=== PATIENT | female | born 1995 | race Caucasian/White ===

== ENCOUNTER 2023-10-29 13:48 | Outpatient (CLI) | payer OTHER, SELFPAY ==
--- NOTE | 2023-10-29 14:00 | US_ITS ---
Patient: BLAISE MARQUEZ Facility:?[facility] Patient ID:?[id number] Site Patient ID:?[id number]. Site :?1995 Study:?US-OB Pelvis DATING AND VIABILITY-10/29/2023 2:48:25 PM Ordering Physician:KIKO NICHOLSON Final Report: INDICATION: Check dates and viability. TECHNIQUE: Transabdominal scanning was performed. COMPARISON: None. FINDINGS: There is a living IUP with gestational age of 10 weeks by LMP and 10 weeks 3 days by today`s crown-rump length. EDC based on LMP is 05/26/2024 and by today`s crown-rump length is 05/23/2024. The embryonic heart rate is measured at 163 beats per minute. The placenta is not yet formed. No subchorionic hemorrhage is evident. A 2.1 cm left ovarian corpus luteum is noted. The right ovary measures 3.0 x 1.7 x 1.3 cm and the left 3.4 x 2.7 x 1.9 cm. No adnexal mass or free fluid is apparent. IMPRESSION: 1. Living IUP with gestational age of 10 weeks by LMP and 10 weeks 3 days by today`s crown-rump length. EDC based on LMP is 05/26/2024 and by today`s crown- rump length is 05/23/2024. 2. No complication evident. Dictated by James Mathews MD @ 10/30/2023 8:02:05 AM Signed by:?James Mathews MD @10/30/2023 8:02:05 AM (Electronic Signature)
== END 2023-10-29 13:49 | disposition home or self-care (01) ==
LOC: US 13:50
PROVIDERS: Visit Provider Registered Nurse
DX: Z34.91 Encounter for supervision of normal pregnancy, unspecified, first trimester (principal); Z3A.10 10 weeks gestation of pregnancy
CPT/HCPCS: 76801; 82565; 82570; 84156; 84450; 84460; 84520; 86703; 86706; 86803; 86850; 86900; 86901; 87086; 87340; 87491; 87591

== ENCOUNTER 2023-10-29 15:08 | Outpatient (CLI) | payer OTHER, SELFPAY ==
[2023-10-29 18:39] LABS: Chlamydia DNA Amplified* NOT DETECTED (No Detected); GC DNA Amplified* NOT DETECTED (No Detected)
== END 2023-10-29 15:09 | disposition home or self-care (01) ==
PROVIDERS: Visit Provider Registered Nurse
DX: Z34.91 Encounter for supervision of normal pregnancy, unspecified, first trimester (principal)
CPT/HCPCS: 82565; 82570; 84156; 84450; 84460; 84520; 86592; 86703; 86704; 86706; 86762; 86787; 86803; 86850; 86900; 86901; 87086; 87340; 87491; 87591

== ENCOUNTER 2024-01-07 13:46 | Outpatient (CLI) | payer OTHER, BC, SELFPAY ==
--- NOTE | 2024-01-07 14:00 | US_ITS ---
Patient: BLAISE MARQUEZ Facility:?[facility] Patient ID:?[id number] Site Patient ID:?[id number]. Site :?1995 Study:?US-OB Pelvis OB > 14wks-01/07/2024 3:41:19 PM Ordering Physician:?Yanni Lucero Final Report: HISTORY: anatomic survey. COMPARISON: Early OB ultrasound from 10/29/2023 TECHNIQUE: Ultrasound examination of the is performed with transabdominal technique. FINDINGS: A single intrauterine gestation is seen in variable presentation with regular cardiac activity at 139 beats per minute. The placenta is posterior and is low- lying, with the inferior placental margin 2.4 centimeters from the cervical os. The placental grade is 0 and the amniotic fluid volume is normal. Single deepest vertical pocket: Normal at 4.8 cm. The cervix is nondilated and normal in length measuring 3.8 centimeters. BPD: 4.7 cm 20 weeks 0 days HC: 18.3 cm 20 weeks 5 days AC: 15.0 cm 20 weeks 2 days FL: 3.5 cm 21 weeks 0 days The estimated age by ultrasound is 20 weeks 3 days, with an estimated date of delivery of 05/23/2024. This correlates well with the clinical age of 20 weeks 0 days and the previous ultrasound. The ultrasound ratios are normal. The estimated weight of 370 grams is at the 79th percentile based on the clinical dates. The anatomic survey demonstrates normal appearing intracranial structures with a normal septum pellucidum and normal cerebellum. The nuchal thickness is normal at 5 mm, and the lateral ventricle is normal in diameter at 6 mm. The upper lip, 4 chamber heart, left and right ventricular outflow tracts, diaphragm, stomach, cord insertion site, 3-vessel cord, kidneys, bladder and spine are normal in appearance. IMPRESSION: 1. Single intrauterine gestation in variable presentation with regular cardiac activity. 2. Estimated gestational age is 20 weeks 3 days. 3. There has been appropriate interval growth. 4. Estimated weight of 370 grams is at the 79th percentile based on the clinical dates. 5. Low-lying posterior placenta. Recommend follow-up ultrasound to exclude a persistent marginal placenta previa. Dictated by Braydon Hernadez MD @ 01/08/2024 11:08:57 AM Signed by:?Braydon Hernadez MD @01/08/2024 11:08:57 AM (Electronic Signature)
== END 2024-01-07 13:47 | disposition home or self-care (01) ==
LOC: US 13:46
PROVIDERS: Visit Provider Obstetrics & Gynecology
DX: Z34.92 Encounter for supervision of normal pregnancy, unspecified, second trimester (principal); O44.42 Low lying placenta NOS or without hemorrhage, second trimester; Z3A.20 20 weeks gestation of pregnancy
CPT/HCPCS: 76805

== ENCOUNTER 2024-03-01 08:17 | Outpatient (CLI) | payer OTHER, BC, SELFPAY ==
--- NOTE | 2024-03-01 08:45 | CRLHL7_ITS ---
For Patients: As a result of the Century Cures Act, medical imaging exams and procedure reports are released immediately into your electronic medical record. You may view this report before your referring provider. If you have questions, please contact your health care provider. INDICATION: Borderline low-lying placenta at 20wks COMPARISON: 5.8.24 TECHNIQUE: Real time toledo scale imaging of the fetus was performed. Without non-stress testing. FINDINGS: Sonographic imaging demonstrates a single living intrauterine gestation. Fetus demonstrates a regular cardiac rate of 152 beats per minute. Fetus has a vertex position. The amniotic fluid volume appears normal and there is a single deepest pocket measurement of 5.0 cm. The fetus was active and demonstrated normal breathing movements. There was normal flexion and extension of the trunk and extremities. Posterior placental edge is located 5.7 cm from the internal cervical os. IMPRESSION: Normal biophysical profile score of 8 out of 8. Posterior placental edge is located 5.7 cm from the internal cervical os. Dictated by Denny Tsai MD @ 03/01/2024 11:10:31 AM (Electronically Signed)
== END 2024-03-01 08:18 | disposition home or self-care (01) ==
LOC: US 08:26
PROVIDERS: Visit Provider Obstetrics & Gynecology
DX: O43.102 Malformation of placenta, unspecified, second trimester (principal); Z3A.20 20 weeks gestation of pregnancy
CPT/HCPCS: 76816; 82570; 84156

== ENCOUNTER 2024-03-01 09:14 | Outpatient (CLI) | payer OTHER, BC, SELFPAY | END 2024-03-01 09:15 | disposition home or self-care (01) | LOC: NFLDREF 09:15 | PROVIDERS: Visit Provider Obstetrics & Gynecology | DX: Z34.82 Encounter for supervision of other normal pregnancy, second trimester (principal) | CPT/HCPCS: 82570; 84156; 86592 ==

== ENCOUNTER 2024-04-23 15:17 | Outpatient (CLI) | payer OTHER, BC, SELFPAY | END 2024-04-23 15:18 | disposition home or self-care (01) | LOC: NFLDREF 04-27 23:23 | PROVIDERS: Visit Provider Obstetrics & Gynecology | DX: Z34.93 Encounter for supervision of normal pregnancy, unspecified, third trimester (principal); Z3A.35 35 weeks gestation of pregnancy | CPT/HCPCS: 87081; 87653 ==

== ENCOUNTER 2024-05-06 12:59 | Outpatient (CLI) | payer OTHER, BC, SELFPAY ==
--- NOTE | 2024-05-06 13:00 | CRLHL7_ITS ---
For Patients: As a result of the Century Cures Act, medical imaging exams and procedure reports are released immediately into your electronic medical record. You may view this report before your referring provider. If you have questions, please contact your health care provider. INDICATION: Growth and BPP TECHNIQUE: Real time toledo scale imaging of the fetus was performed. COMPARISON: 03/01/2024 FINDINGS: Sonographic imaging demonstrates a single living intrauterine gestation. Fetus demonstrates a regular cardiac rate of 131 beats per minute. Fetus has a vertex position. The placenta lies posteriorly. Amniotic fluid volume appears normal and there is a single deepest pocket of 7.3 cm. The estimated weight is 3193gm which lies at the 64th %. On the prior OB ultrasound dated 01/07/2024 the estimated weight was at the 79th percentile. BPD 4th percentile. HC 46th percentile. AC 86th percentile. FL is 50th percentile. The fetus was active and demonstrated normal breathing movements. There was normal flexion and extension of the trunk and extremities. IMPRESSION: Normal biophysical profile score 8/8. Sonographic gestational age 36 weeks 6 days and a sonographic due date 05/28/2024. Good correlation with dates. Estimated weight 64th percentile. Abdominal circumference is 86th percentile. BPD 4th percentile. Dictated by Denny Tsai MD @ 05/06/2024 2:46:51 PM (Electronically Signed)
== END 2024-05-06 13:00 | disposition home or self-care (01) ==
LOC: US 12:59
PROVIDERS: Visit Provider Obstetrics & Gynecology
DX: Z34.93 Encounter for supervision of normal pregnancy, unspecified, third trimester (principal); Z3A.36 36 weeks gestation of pregnancy
CPT/HCPCS: 76816; 76819

== ENCOUNTER 2024-05-09 07:01 | Inpatient (IN) | payer OTHER, BC, SELFPAY ==
[2024-05-09] VITALS (30 sets, daily range): BP systolic 105–139; BP diastolic 60–90; PULSE 60–104; RESP 16–18; TEMP 36.4–37.1; O2SAT 95–100; BMI 39.0
[2024-05-09] MEDS: LACTATED RINGERS 1000 ML 1,000 ML 1125 ML IV (07:30)
[2024-05-09 07:31] LABS: Amnisure Rom* POSITIVE
[2024-05-09 07:32] LABS: Basophils Percent Auto 0.4 % (0.0-3.0); Hematocrit 34.3 % (33.0-51.0); Hemoglobin* 11.3 gm/dL (12.0-16.0); Immature Granulocytes Pct Auto 0.3 %; Lymphocytes Percent Auto 13.9 % (20-44); Mean Corpuscular HGB Conc 33 gm/dL (32-36); Mean Corpuscular Hemoglobin 28 pg (26-34); Mean Corpuscular Volume 85 fL (80-100); Monocytes Percent Auto 4.3 % (0.0-11.0); Neutrophils Percent Auto 80.1 % (42.0-72.0); Platelet Count* 263 K/uL (140-440); Red Blood Count 4.06 m/uL (4.00-5.20); White Blood Count* 12.77 K/uL (4.50-11.00)
[2024-05-09 07:36] LABS: Slide Review Reflex No
[2024-05-09] MEDS: AZITHROMYCIN 500 MG in 0.9 % SODIUM CHLORIDE 250 ml 250 ML 255 MG IVPB (07:45)
--- NOTE | 2024-05-09 07:59 | P.OBHP_ITS ---
OB - H&P: HPI History of Present Illness Chief complaint: maternity Narrative: Rachel Nogueira is a 28 year old female Specific Issues/Plans G 2 P 1 Spouse: Mao Son: Bruno. Baby: Boy! H&P and consent by NDP on 04/29/2024. Measuring large for dates USN for BPP(elevated BMI) and follow up for EFW at 37 weeks-resolved. EFW 63 %ile Body mass index: 36.9 Hemoglobin A1c 5.4 Consider weekly BPP and/or NST starting at 37 weeks. Tobacco use in . Cut down from 10 cigarettes per day to 5 cigarettes per day. Reviewed risks. Encouraged cessation. She declined information regarding cessation. History of gestational hypertension Baseline preeclampsia labs performed. PC ratio 0.00 [x] start ASA 81mg daily [x] baseline 24 hour on 03/01: normal at 27.5 Fourth degree laceration with previous delivery. Desires primary . * Requested 05/19/24 w/ NDP History of hemorrhage Reports difficulty with epidural during 1st labor. Interested in meeting with anesthesia. * Referral placed on 04/08/2024 History of anxiety. Has not taken medication for it since high school. Stable at 1st OB Varicella non-immune. Rec. PP vaccine. Borderline low lying placenta on FAS - transvaginal not performed - Posterior placenta 2.4cm from os, radiology recommended repeat evaluation (?since technically normal) [x] 28 week repeat US - 5.6cm, RESOLVED. Flu: Recommended. Declined. Covid: Not vaccinated. Recommended. Declined. TDAP: 03/22/24 34wk hgb: 11.6 GBS 04/29/2024: 32 wk mental health 04/08/2024: PHQ-9: 0; SCOT-7: 0 H&P and consent by NDP on 04/29/2024. PFSH PFSH Medical History Anxiety ?F41.9 - Anxiety disorder, unspecified (ICD-10) Family History Other Anxiety Diabetes High blood pressure High cholesterol Parkinson disease Social History What is your current living situation?: I presently have a place to live Problems where you live: no known problems In the past 12 months, utilities in danger of being shut off: no In past 12 months, lack of transportation kept you from medical appts, meetings, work, or getting things needed for daily living: no In the past 12 mos, have been you worried that your food would run out before y ou had money to buy more?: never true In the past 12 mos, the food you bought just didn't last and you didn't have money to buy more?: never true Smoking Status: Current every day smoker How often does anyone, including family, friends and others, physically hurt you : never How often does anyone, including family, friends and others, insult or talk down to you: never How often does anyone, including family, friends and others, threaten you with harm: never How often does anyone, including family, friends and others, scream or curse at you: never Little interest or pleasure in doing things: not at all Feeling down, depressed, or hopeless: not at all Meds Home Medications and Allergies Home Medications ?Medication ?Instructions ?Recorded ?Confirmed ?Type docosahexaenoic acid 200 mg mg PO 10/29/23 05/06/24 History capsule ( DHA) aspirin 81 mg tablet,delayed 81 mg PO QDAY 02/09/24 05/06/24 History release omeprazole 20 mg capsule,delayed 20 mg PO QDAY 04/08/24 05/06/24 History release Allergies Allergy/AdvReac Type Severity Reaction Status Date / Time No Known Drug Allergies Allergy Verified 05/06/24 13:51 OB - H&P: Exam Physical Exam: Vital signs: Temp Pulse Resp BP 98.1 F 98 16 135/85 05/09/24 06:50 05/09/24 06:49 05/09/24 06:50 05/09/24 06:49 OB - Results Labs Labs: Short CBC 05/09/24 Range/Units 07:20 WBC 12.77 H (4.50-11.00) K/uL Hgb 11.3 L (12.0-16.0) gm/dL Hct 34.3 (33.0-51.0) % Plt Count 263 (140-440) K/uL
[2024-05-09] MEDS: CEFAZOLIN 1 GM inj 3 GM IVP (08:28)
[2024-05-09] MEDS: LACTATED RINGERS 1000 ML 1,000 ML 125 ML IV ×3 (08:37→13:34)
[2024-05-09] MEDS: TRANEXAMIC ACID 100 MG/ML INJ 1000 MG IV (09:00)
--- NOTE | 2024-05-09 09:12 | W.PM.NB ---
Nerve Block Nerve Block Date Seen: 05/09/24 Type of block requested by surgeon for post-operative analgesia: TAP Side: bilateral Time out performed: Yes Verification of patient name: Yes Verification of date of : Yes Site marking: site marked Name of person performing procedure: Danial Quinn Continuous monitoring Was continuous monitoring of O2 sat, B/P, groundwater monitoring technician, recorded every 15 minutes?: Yes Procedure Checklist: sterile prep, needles and gloves Ultrasound guided. Images saved: Yes Medications given in 5ml increments after negative aspiration: Marcaine %: 0.25 mL: 30 Needle gauge: 20 and Exparel mL: 10 Needle gauge: 20 Patient tolerated procedure well: Yes Additional comments: Injected in 5ml increments after negative aspiration Block Charges Block Charge (with Pro Fee): TAP Bilateral Use of Ultrasound Machine for Block: Yes- US Guidance/pain block
--- NOTE | 2024-05-09 09:13 | W.ANESCHARGE ---
Anesthesia Charges Start Date/Time Anesthesia Start Date: 05/09/24 Anesthesia Start Time: 08:13 Stop Date/Time Anesthesia Stop Date: 05/09/24 Anesthesia Stop Time: 10:16 Summary Emergency: [facility]
[2024-05-09] MEDS: KETOROLAC 30 MG/ML inj IVP ×3 (09:37→21:25)
--- NOTE | 2024-05-09 09:56 | PM.OBPRCCS ---
Procedure Time Seen by Provider: 10:00 Date of procedure: 05/09/24 Pre-op diagnosis: PROM, history of 4th degree laceration and PPH, maternal request for Procedure Done: Global Will [facility] bill your pro fee for this procedure?: Yes Blood Loss Measurement Type: QBL (9333) Bakri Used: No IV fluids (mL): 2,500 Urine Output (mL): 25 Urine Output Comment: Clear yellow Surgeon: Km Lucero MD Anesthesia Type: Spinal Findings: Live born male Unremarkable uterus, bilateral fallopian tubes and ovaries Extension of the left hysterotomy margin Procedure Name: Primary delivery Procedure Description: Patient was taken to the operating room with IV running. She received cefazolin and azithromycin in preoperative prophylaxis. Spinal anesthesia was administered. Vaca catheter was inserted. She was prepped and draped in the usual sterile fashion. Anesthesia was tested and found to be adequate. A low-transverse skin incision was made with a scalpel and carried through to the underlying layer of fascia with the scalpel. The subcutaneous fat was dissected off the underlying fascia with Bovie and blunt dissection. The fascia was nicked in the midline with a scalpel, and this incision was extended laterally bluntly consistent with Herber-Mena technique. The rectus muscles were in the midline. Peritoneum was identified and entered bluntly. Bovie was used to widen this opening laterally. Surinder O retractor was inserted and tightened down, providing excellent visualization of the lower uterine segment. The bladder reflection was found to be advanced along the lower uterine segment. A bladder flap was created with a combination of sharp and blunt dissection. Low-transverse uterine incision was made with a scalpel. Incision was widened bluntly. The 's head was grasped through amniotic sac and elevated to level of the hysterotomy. head and remainder of the body delivered without incident with the help of fundal pressure. No nuchal cord was noted x1, reduced prior to delivery of body. Cord was clamped and cut after 30 seconds. Infant was handed off to attending nurses and pediatrics provider. The placenta was delivered with gentle traction on the cord. The uterus was exteriorized, then cleaned of all clots and debris with the dry lap pad x2. Left hysterotomy margin was notable for brisk bleeding, grasped with ring forceps. The hysterotomy was reapproximated with 0 Vicryl in a running, locked fashion. After closure of the first layer, a complete defect in the broad ligament was noted where omentum was noted to be protruding through. The left margin of the hysterotomy had ongoing oozing, with bleeding noted both afteriorly and posteriorly on the uterus where it met the margin of the broad ligament defect. A figure of eight suture was applied with 0 vicryl initially, making care to spare the left ascending branch of the uterine vessels. Bleeding persisted, where 1g of IV TXA was requested and administered. Uterine tone was noted to be excellent. A second figure of eight was applied more inferiorly in the same fashion with 0 vicryl, where bleeding persisted. Left sided Rishi's stich was performed at the level below the bleeding defect of the left hysterotomy to assure hemostasis. Care was made to ensure stitch was applied lateral to the ascending uterine vessel in the broad, clear of the ureter and posterior bowel. This much improved hemostasis, where a second layer of the same suture was used in imbricating fashion to obtain additional hemostasis across the hysterotomy. Oozing was noted at the mid hysterotomy, where the bladder flap was further dropped to allow for placement of another figure of eight stitch with 0 vicryl. Additional hemostasis was achieved with electrocautery as needed. The adnexa were examined and noted to be normal in appearance. The cul-de-sac and gutters were cleansed with dampened laparotomy sponge, removing any further clots and debris. The posterior uterus was inspected and noted to be hemostatic, no apparent broad ligament hematoma noted. The entire hysterotomy was examined and again noted to be hemostatic. The uterus was reintroduced. Small oozing was noted again the midline of hysterotomy, despite pressure and electrocautery. Figure of eight suture was applied to reinforce this area with 0 vicryl. Excellent hemostasis was noted. Bladder flap was sequentially examined and noted to be hemostatic. The Surinder O retractor was removed. The hysterotomy was reexamined and found to be hemostatic. Princess was applied across the hysterotomy for reinforcement of hemostasis. The rectus muscles were examined and hemostasis was achieved as needed with electrocautery. The fascia was reapproximated with 0 Vicryl in a running fashion. Subcutaneous fat was irrigated and Bovie used on oozing vessels. The subcutaneous fat was reapproximated with 2 0 vicryl suture in a running fashion. The skin was closed with a subcuticular stitch of 3-0 monocryl. Surgical glue was applied above this. Patient tolerated procedure well was taken to recovery area in stable condition. Surgical debrief was completed. Case was complicated by PPH secondary to tissue trauma, requiring reinforcement of the hysterotomy and left O'leary stitch. QBL 1043mL. Excellent hemostasis and uterine tone at completion of case, VS reassuring. details: - Liveborn male fetus - weight: Pending - APGARs were 8 and 8 at 1 and 5 minutes respectively Pathology: specimen obtained, sent to pathology Surgery Debrief Performed: Yes Condition: stable Disposition: floor
--- NOTE | 2024-05-09 10:01 | P.LDBA_ITS ---
Subjective History of Present Illness Time Seen by Provider: 07:30 Date Seen: 05/09/24 Narrative: Patient is being admitted to Labor and Delivery for on scheduled primary in the setting of PROM. She is a 28 year old at 37w4d GA by LMP. is complicated by a history of hemorrhage, 4th degree laceration, obesity and tobacco use disorder. Her full history and physical was dictated by Dr. Post on 04/29/24. Please see this for details. Rachel notes onset of small volume leaking at 0530, followed by a large gush. She denies abdominal pain/contractions or vaginal bleeding. Questions decreased movement, but has reactive NST on arrival. She has since noted contractions about every 5 minutes rated as 2/10 in severity. Amnisure positive. ROS otherwise negative. Specific Issues/Plans G 2 P 1 Spouse: Mao Son: Bruno. Baby: Boy! H&P and consent by NDP on 04/29/2024. Measuring large for dates USN for BPP(elevated BMI) and follow up for EFW at 37 weeks-resolved. EFW 63 %ile Body mass index: 36.9 Hemoglobin A1c 5.4 Consider weekly BPP and/or NST starting at 37 weeks. Tobacco use in . Cut down from 10 cigarettes per day to 5 cigarettes per day. Reviewed risks. Encouraged cessation. She declined information regarding cessation. History of gestational hypertension Baseline preeclampsia labs performed. PC ratio 0.00 [x] start ASA 81mg daily [x] baseline 24 hour on 03/01: normal at 27.5 Fourth degree laceration with previous delivery. Desires primary . * Requested 05/19/24 w/ NDP History of hemorrhage Reports difficulty with epidural during 1st labor. Interested in meeting with anesthesia. * Referral placed on 04/08/2024 History of anxiety. Has not taken medication for it since high school. Stable at 1st OB Varicella non-immune. Rec. PP vaccine. Borderline low lying placenta on FAS - transvaginal not performed - Posterior placenta 2.4cm from os, radiology recommended repeat evaluation (?since technically normal) [x] 28 week repeat US - 5.6cm, RESOLVED. Flu: Recommended. Declined. Covid: Not vaccinated. Recommended. Declined. TDAP: 03/22/24 34wk hgb: 11.6 GBS 04/29/2024: 32 wk mental health 04/08/2024: PHQ-9: 0; SCOT-7: 0 H&P and consent by NDP on 04/29/2024. OB - Problem Based A/P Additional Plan (1) : Status: Acute (2) Hx of maternal laceration, 4th degree, currently : Status: Acute (3) History of gestational hypertension: Status: Acute (4) Obesity (BMI 30-39.9): Status: Acute (5) Tobacco use: Status: Acute Plan Rachel is a 28yo at 37w4d GA admitted for primary in the setting of PROM. is complicated by 4th degree laceration history, history of PPH, history of gHTN, obesity and tobacco use. ROM confirmed with positive Amnisure. She is now tunde q2-5 minutes, reactive NST. We again reviewed risks/benefits and alternatives for primary for her history of 4th degree laceration. Rachel affirms her desire to proceed. Written consent was re-initiated. - Proceed with primary - Ancef and azithromycin for perioperative antibiotics - T/S and CBC on admission for hx of PPH - EFW 64%ile by US on 05/06 - BT A+ - GBS negative OB Exam Physical Exam Vital signs: Temp Pulse Resp BP 98.1 F 98 16 135/85 05/09/24 06:50 05/09/24 06:49 05/09/24 06:50 05/09/24 06:49 Narrative: General: Alert and oriented, in no acute distress Psych: Appropriate mood and affect Abdomen: Gravid. EFW 3193g at 64th percentile on US on 05/06. Cephalic presentation. NST: Reactive NST. Baseline 130bpm, moderate variability, 15x15 accelerations present. No decelerations. Cervix: 1.5cm/70% and -1 by RN. [place]: contractions q2-5 minutes.
--- NOTE | 2024-05-09 10:25 | P.NB_ITS ---
Nerve Block Nerve Block Time Seen by Provider: 10:05 Date Seen: 05/09/24 Type of block requested by surgeon for post-operative analgesia: TAP Side: bilateral Time out performed: Yes Verification of patient name: Yes Verification of date of : Yes Site marking: site marked Name of person performing procedure: Danial Quinn Continuous monitoring Was continuous monitoring of O2 sat, B/P, crusher and binder operator, recorded every 15 minutes?: Yes Procedure Checklist: sterile prep, needles and gloves Ultrasound guided. Images saved: Yes Medications given in 5ml increments after negative aspiration: Marcaine %: 0.25 mL: 30 Needle gauge: 20 and Exparel mL: 10 Needle gauge: 20 Patient tolerated procedure well: Yes Additional comments: Injected in 5ml increments after negative aspiration Block Charges Block Charge (with Pro Fee): TAP Bilateral Use of Ultrasound Machine for Block: Yes- US Guidance/pain block
[2024-05-09] MEDS: ACETAMINOPHEN 500 MG TABLET 1000 MG PO (21:24)
[2024-05-09] MEDS: SIMETHICONE 80 MG TAB.CHEW PO (21:24)
[2024-05-09] MEDS: SODIUM CHLORIDE 0.9 % (FLUSH) 10 ML SYRINGE IVF (21:26)
[2024-05-10] VITALS (13 sets, daily range): BP systolic 99–121; BP diastolic 62–79; PULSE 74–91; RESP 16–18; TEMP 36.4–36.9; O2SAT 96
[2024-05-10] MEDS: ACETAMINOPHEN 500 MG TABLET 1000 MG PO ×4 (03:36→22:38)
[2024-05-10] MEDS: SIMETHICONE 80 MG TAB.CHEW PO (03:36)
[2024-05-10] MEDS: KETOROLAC 30 MG/ML inj IVP ×3 (03:36→15:39)
[2024-05-10] MEDS: SODIUM CHLORIDE 0.9 % (FLUSH) 10 ML SYRINGE IVF (03:37)
--- NOTE | 2024-05-10 08:34 | PM.OBPNVD1 ---
OB - PN:Subj Subjective Date Seen: 05/10/24 Interval history: The patient feels well.? The pain is well controlled with current medications.? She has no new complaints.? Urinary output is adequate and she is voiding without difficulty.? Has a good appetite, is tolerating a general diet, is passing flatus, and has had a bowel movement.? Has [scant/small/moderate] amount of rubra lochia.? She is ambulating well. She is and reports it is going well.? Narrative: The patient feels well.? The pain is well controlled with current medications.? She has no new complaints.? Urinary output is adequate and she is voiding without difficulty.? Has a good appetite, is tolerating a general diet, is passing flatus, and has not had a bowel movement.? Has small amount of rubra lochia.? She is ambulating well. She is and reports it is going well.? OB - PN: Obj Exam Physical Exam: Vital signs: Temp Pulse Resp BP Pulse Ox O2 Del Method 98.4 F 77 18 99/62 96 Room Air 05/10/24 03:45 05/10/24 03:45 05/10/24 06:13 05/10/24 03:45 05/10/24 03:45 05/10/24 03:45 Narrative: GENERAL APPEARANCE:? normal affect, alert, no distress MOOD:? appropriate CHEST:? clear to auscultation HEART:? regular rate and rhythm ABDOMEN:? soft, non-tender the uterine fundus is At Umbilicus, Midline and is appropriate for the stage of recovery. EXTREMITIES:? normal and mild edema Incision: Surgical dressing intact with no discharge or surrounding erythema Urinary Catheter Management: 2-way Urethral: Cath placed during this visit: yes, but has since been removed by the nurse Reason for continuing: surgical procedure Insertion date: 05/09/24 Insertion time: 08:23 Removal date: 05/10/24 Removal time: 03:54 OB - PN: Obj Data Labs Labs: Laboratory Results - last 24 hr 05/10/24 06:20 Hgb 9.0 L OB - PN: A/P Delivery Assessment and Plan (1) Obesity (BMI 30-39.9): Status: Acute (2) Tobacco use: Status: Acute (3) care following delivery: Status: Acute (4) Lactating mother: Status: Acute Plan Continue routine , postoperative care. , may see if needed? Hgb 9.0. ?? Labs stable with trending? Anticipate discharge 05/11/2024 ? Plan Plan: routine care
[2024-05-10] MEDS: DOCUSATE SODIUM 100 MG CAPSULE PO (10:07)
[2024-05-10] MEDS: MAG HYDROX/ALUMINUM HYD/SIMETH 30 ML ORAL.SUSP PO (12:22)
[2024-05-10] MEDS: IBUPROFEN 600 MG TABLET PO (20:40)
[2024-05-11] MEDS: IBUPROFEN 600 MG TABLET PO ×2 (02:41→08:47)
[2024-05-11 02:42] VITALS: BP 124/80; PULSE 70; RESP 16; TEMP 36.6; O2SAT 95
[2024-05-11] MEDS: ACETAMINOPHEN 500 MG TABLET 1000 MG PO ×2 (05:38→11:28)
--- NOTE | 2024-05-11 07:30 | PM.OBDSVD1 ---
DS: Providers Provider Date Seen: 05/11/24 Date of admission: 05/09/24 07:01 Primary care physician: Not a Local Provider Admitting Clinician: Yanni Lucero MD Attending Physician on discharge: Yanni Lucero MD Date of Discharge: 05/11/24 DS: Diagnosis Discharge Diagnosis (1) care following delivery: Status: Acute (2) Lactating mother: Status: Acute (3) Obesity (BMI 30-39.9): Status: Acute (4) Tobacco use: Status: Acute Exam Narrative: Exam Narrative: GENERAL APPEARANCE:? normal affect, alert, no distress? MOOD:? appropriate? CHEST:? clear to auscultation and percussion? HEART:? regular rate and rhythm? ABDOMEN:? soft, non-tender the uterine fundus is U/2 and is appropriate for the stage of recovery. Incision well approximated without redness, edema, or drainage.? EXTREMITIES:? normal and no edema? Const: Vital Signs, click to edit/add: Vital Signs - 24 hr 05/10/24 08:26 05/10/24 08:32 05/10/24 15:30 Temperature 98.1 F 97.5 F L Pulse Rate [Pulse Oximeter] 76 91 Respiratory Rate 16 16 16 Blood Pressure [Ri ght Arm] 110/67 121/79 Pulse Oximetry 96 Oxygen Delivery Me thod Room Air 05/10/24 20:29 05/11/24 02:42 Temperature 97.6 F 97.8 F Pulse Rate [Pulse Oximeter] 74 70 Respiratory Rate 18 16 Blood Pressure [Ri ght Arm] 119/76 124/80 Pulse Oximetry 96 95 Oxygen Delivery Me thod Room Air Room Air Documenting provider has reviewed patient's vital signs: yes OB - DS: Summary Hospital Course Hospital Course: Rachel is a 28 year old G 2 P 2 at 37.4 weeks gestation that was admitted to the Center on 05/09/24 for elective primary delivery after SROM. She had a delivery complicated by a hemorrhage. She delivered a viable male . She is breast feeding and denies concerns with the latch but feels she is having difficulty keeping baby awake. She is also looking for a new breast pump. Encouraged . the patient has done well. She is unsure what she is planning for contraception but has had an IUD in the past and considering that again. Will send her home on EOD iron supplement for Hgb 9.0. Reviewed options with . Peripartum Data Infant delivery method: Primary C/S; Non-Labored Procedures: Procedures Operation Date: 05/09/24 08:15 Actual Procedure Side Surgeon p PRIMARY LOW TRANSVERSE SECTION Not Applicable Yanni Lucero MD complications: none Infant Gender: Male Infant Discharge Plan: Home Status at Discharge Functional status at discharge: independent ambulation Overall status at discharge: patient is progressing back to baseline Time Spent with Patient Time attestation: Total time spent providing and/or coordinating discharge services: Discharge Plan Discharge Disposition: Home, Self-Care Date of Admission: 05/09/24 07:01 Primary Care Provider: Provider,Not a Local Condition: Stable Anticipated Discharge Date/Time: 05/11/24 10:00 Discharge Medications: New docusate sodium 100 mg Capsule 100 mg PO DAILY Qty: 90 0RF Rx Instructions: Take 1-2 tablets daily as needed for constipation. ibuprofen 600 mg Tablet 600 mg PO Q6H PRN (Reason: Pain) Qty: 90 0RF oxycodone 5 mg Tablet 5 - 10 mg PO Q4H PRN (Reason: Pain) Qty: 5 0RF ferrous sulfate 325 mg (65 mg iron) tablet 325 mg PO Q OTHER DAY Qty: 90 0RF Continued DHA 200 mg capsule PO omeprazole 20 mg capsule,delayed release(DR/EC) 20 mg PO QDAY Discontinued aspirin 81 mg tablet,delayed release (DR/EC) 81 mg PO QDAY Discharge Orders: Discharge Order (Routine); Ordered 05/11/24 Ordered By: Reva Massey Patient Education: OB /Breast Feeding Additional Instructions: Discharge instructions were reviewed with the patient including signs and symptoms of infection and home going medications? ?? Activity restrictions:? Lifting Restrictions: 20 pounds for 6 weeks? No high-impact or core exercises for 6 weeks.?? No not submerge incision under water X 2 weeks?? Nothing vaginally for 6 weeks: no tampons or intercourse? Do not drive while taking narcotic pain medication(s)? Off Work or School for 8 weeks? ?? Symptoms to report to doctor:? -Bleeding that saturates more than one pad per hour? -Passing clots larger than the size of a golf ball? -Pain not relieved by prescribed medication? -Fever above 100.4 degrees Fahrenheit? -A foul vaginal odor? -Difficulty in emotions, mood and functions? -Thoughts of hurting yourself and/or ? -Painful, reddened area in your breast? -Any drainage, redness or tenderness in your IV/epidural site? -Severe headache that doesn't improve after taking medications? -Changes in vision, including temporary loss of vision, blurred vision, and/or light sensitivity? -Upper abdominal pain (usually under ribs on the right side)? -Decrease in urination or painful, frequent urinating? -Chest pain? -Shortness of breath? -Tenderness or pain with redness and/swelling in the calf(s) of your leg? Follow up visits:?? 1. 1 week visit:? incision check.? 2. 2-week visit: discuss feeding/care concerns, review control options and screen for anxiety/depression.? 3. 6-week visit for an annual exam.? ?? consultation services are available to all mothers and babies for the first year after delivery.? To make an appointment, please call [phone].? Follow Up Appointments: Provider,Not a Local [Primary Care Provider] - [facility] [Provider Group] Forms: MyHealth Info Instructions
[2024-05-11 07:44] VITALS: BP 139/85; PULSE 69; RESP 16; TEMP 36.9; O2SAT 96
[2024-05-11] MEDS: DOCUSATE SODIUM 100 MG CAPSULE PO (08:48)
[2024-05-12 03:28] LABS: Rapid Plasma Reagin (RPR) Non Reactive (Non Reactive)
== END 2024-05-11 13:17 | disposition home or self-care (01) | DRG 787 ==
LOC: OB OUT 07:58 → OB 07:59
PROVIDERS: Admitting Provider Obstetrics & Gynecology; Visit Provider Obstetrics & Gynecology
PROC: 10D00Z1 Extraction of Products of Conception, Low, Open Approach (ICD-10-PCS; CPT 59514; principal; 2024-05-09 08:00)
DX: O42.02 Full-term premature rupture of membranes, onset of labor within 24 hours of rupture (principal); O72.1 Other immediate postpartum hemorrhage; O75.82 Onset (spontaneous) of labor after 37 completed weeks of gestation but before 39 completed weeks gestation, with delivery by (planned) cesarean section; G89.18 Other acute postprocedural pain; O99.214 Obesity complicating childbirth; O99.334 Smoking (tobacco) complicating childbirth; F17.210 Nicotine dependence, cigarettes, uncomplicated; O36.63X0 Maternal care for excessive fetal growth, third trimester, not applicable or unspecified; Z86.59 Personal history of other mental and behavioral disorders; Z87.59 Personal history of other complications of pregnancy, childbirth and the puerperium; Z3A.37 37 weeks gestation of pregnancy; Z37.0 Single live birth
CPT/HCPCS: 01961; 36415; 64488; 76942; 84112; 85018; 85025; 86592; 86850; 86900; 86901; 88307; 99140; G0463; A9270; C9290; J0456; J0665; J0690; J1100; J1885; J2274; J2405; J2590; J7050; J7120

== ENCOUNTER 2024-05-25 14:36 | Outpatient (CLI) | payer OTHER, BC, SELFPAY | END 2024-05-25 14:37 | disposition home or self-care (01) | PROVIDERS: Visit Provider Registered Nurse | DX: R03.0 Elevated blood-pressure reading, without diagnosis of hypertension (principal) | CPT/HCPCS: 82565; 84450; 84460; 84520 ==